=== PATIENT | male | born 1950 | race Caucasian/White ===

== ENCOUNTER 2018-04-28 15:32 | Emergency (ER) | payer MEDICARE ==
[2018-04-28] MEDS ORDERED: FAMOTIDINE 20 MG TAB PO STA (17:32)
--- NOTE | 2018-04-28 17:38 | ED ---
General Adult HPI - General Chief complaint: Allergic Reaction Stated complaint: Allergic reaction to medication Time Seen by Provider: 04/28/18 17:23 Source: patient, RN notes reviewed, old records reviewed Mode of arrival: ambulatory Limitations: no limitations - History of Present Illness Initial comments: 67 -year-old male presents for evaluation of lip swelling. Patient's symptoms began yesterday evening, there were sent by a.m. this morning. Patient states symptoms had been improving, and was seen by his primary care physician, there was concern for angioedema as patient is on lisinopril. Patient states she's had these symptoms 3-4 times over the past 1-2 years. Resolved with Benadryl. No other treatment. He took his lisinopril medication this morning. Patient denies dyspnea, denies tongue swelling. Denies any other symptoms. Patient had eaten a candidate bar in the waiting room. - Related Data Home Medications Medication Instructions Recorded Confirmed Dextroamphetamine/Amphetamine 25 mg PO BID 11/23/15 11/23/15 [Adderall Xr] Lisinopril [Prinivil] 10 mg PO DAILY 11/23/15 11/23/15 Venlafaxine HCl ER [Effexor Xr] 150 mg PO DAILY 11/23/15 11/25/15 Previous Rx's Medication Instructions Recorded Famotidine [Pepcid] 20 mg PO DAILY #7 tablet 04/28/18 diphenhydrAMINE [Benadryl] 25 mg PO TID PRN #21 capsule 04/28/18 methylPREDNISolone Dose Pack 4 mg PO DIRECTED #21 package 04/28/18 [Medrol Dose Pack] Allergies Allergy/AdvReac Type Severity Reaction Status Date / Time lisinopril Allergy Swelling Verified 04/28/18 17:25 Review of Systems ROS Statement: Those systems with pertinent positive or pertinent negative responses have been documented in the HPI. ROS Other: All systems not noted in ROS Statement are negative. Past Medical History Past Medical History: Hypertension, Pneumonia History of Any Multi-Drug Resistant Organisms: None Reported Additional Past Surgical History / Comment(s): vasectomy with 2 reversals Past Anesthesia/Blood Transfusion Reactions: No Reported Reaction Smoking Status: Former smoker Past Alcohol Use History: Occasional Past Drug Use History: None Reported - Past Family History Mother Family Medical History: Cancer Additional Family Medical History / Comment(s): lung General Exam Limitations: no limitations General appearance: alert, in no apparent distress Head exam: Present: atraumatic, normocephalic Eye exam: Present: normal appearance ENT exam: Present: other (Bilateral upper and lower lip swelling, no tongue swelling, no uvular swelling, no oropharyngeal swelling, no stridor) Neck exam: Present: normal inspection. Absent: tenderness, meningismus Respiratory exam: Present: normal lung sounds bilaterally. Absent: respiratory distress, stridor Cardiovascular Exam: Present: regular rate, normal rhythm GI/Abdominal exam: Present: soft. Absent: distended, tenderness Extremities exam: Present: normal inspection, normal capillary refill. Absent: pedal edema Neurological exam: Present: alert, oriented X3, CN II-XII intact. Absent: motor sensory deficit Psychiatric exam: Present: normal affect, normal mood Skin exam: Present: warm, dry, intact. Absent: cyanosis, diaphoretic Course Vital Signs 04/28/18 04/28/18 16:30 17:25 Temperature 97.7 F Pulse Rate 90 Respiratory 18 18 Rate Blood Pressure 148/83 O2 Sat by Pulse 98 Oximetry - Reevaluation(s) Reevaluation #1: 04/28/18 1830 Patient is observed in the emergency department for approximately 3 and half hours, no worsening of his symptoms, no tongue or uvular swelling, no stridor. Medical Decision Making - Medical Decision Making Patient with angioedema, patient reports symptoms are improving. He did take lisinopril this morning her symptoms have improved since he took this medication. He had taken Benadryl several hours prior to arrival, given 125 mg Solu-Medrol by his primary care physician prior to arrival. He is given Pepcid in the emergency department. He was observed, lisinopril was added to his ALLERGY list. He will discontinue this medication. He will be discharged home on steroids, Benadryl, Pepcid. Disposition Clinical Impression: Angioedema, Allergy to lisinopril Disposition: HOME SELF-CARE Condition: Good Instructions (If sedation given, give patient instructions): Angioedema (ED) Additional Instructions: Please discontinue lisinopril, follow-up with primary care physician regarding no antihypertensive medication. Prescriptions: diphenhydrAMINE [Benadryl] 25 mg PO TID PRN #21 capsule PRN Reason: Allergic Reaction Famotidine [Pepcid] 20 mg PO DAILY #7 tablet methylPREDNISolone Dose Pack [Medrol Dose Pack] 4 mg PO DIRECTED #21 package Is patient prescribed a controlled substance at d/c from ED?: No Referrals: Carlos Schmitz MD [Primary Care Provider] - 1-2 days Time of Disposition: 18:20
[2018-04-28 18:48] VITALS: BP 127/94; PULSE 88; RESP 16; TEMP 97.5
== END 2018-04-28 18:48 | disposition home or self-care (01) ==
LOC: EC 15:32
DX: T78.3XXA Angioneurotic edema, initial encounter (principal); I10 Essential (primary) hypertension; Z79.899 Other long term (current) drug therapy; Z88.8 Allergy status to other drugs, medicaments and biological substances; Z87.891 Personal history of nicotine dependence
CPT/HCPCS: 99283

== ENCOUNTER → 2022-02-20 | Outpatient (CLI) | payer MEDICARE ==
--- NOTE | 2022-02-20 10:27 | CTL ---
EXAMINATION TYPE: CT Low Dose Lung DATE OF EXAM ORDERED: 02/20/2022 HISTORY: Long-term tobacco use. Lung cancer screening CT DLP: 144.[address] CTDI: 3.70 mGy Automated exposure control for dose reduction was used. SCREENING VISIT: Baseline COMPARISON: Prior diagnostic chest CT is 2011 through 2009. TECHNIQUE: Low dose computed tomography scan was performed through the chest at 1 mm thick sections a nd reconstructed images in multiple planes at 1 mm and [address] DIAGNOSTIC QUALITY: Satisfactory FINDINGS: LUNG NODULES: Present, detailed below: Stable for a 5 mm right lower lobe nodule axial image [address] No greater than 5 mm pulmonary nodules. LUNGS: COPD: Severity: None Fibrosis: Severity: None Lymph nodes: No greater than 1 cm Other findings: Prominent main pulmonary artery at 3.2 cm axial image 27 consistent with underlying p ulmonary artery hypertension. RIGHT PLEURAL SPACE: Effusion: None Calcification: None Thickening: None Pneumothorax: None LEFT PLEURAL SPACE: Effusion: None Calcification: None Thickening: None Pneumothorax: None HEART: Heart Size: Normal Coronary Calcification: Mild in the LAD. Pericardial Effusion: None OTHER FINDINGS: Upper abdomen: None Bony thorax: S shaped scoliosis is redemonstrated. Mild multilevel spurring in the spine. Supraclavicular region: None Other: None IMPRESSION: No significant new or enlarging greater than [address] LUNG RAD AND CT CHEST RECOMMENDATION: Lung-Rad 2 Benign Appearance or Behavior: Continue annual sc reening with LDCT in 12 months. S Modifier (other clinically significant findings): None
== END | disposition home or self-care (01) ==
LOC: RADCTMAIN 09:20
PROVIDERS: ATTEND Family Medicine
DX: Z12.2 Encounter for screening for malignant neoplasm of respiratory organs (principal); R91.8 Other nonspecific abnormal finding of lung field; Z87.891 Personal history of nicotine dependence
CPT/HCPCS: 71271

== ENCOUNTER → 2023-08-28 | Outpatient (CLI) | payer MEDICARE ==
--- NOTE | 2023-08-29 01:20 | CTL ---
EXAMINATION TYPE: CT Low Dose Lung DATE OF EXAM ORDERED: 08/28/2023 HISTORY: Current smoker, 55 pack-year history. Lung cancer screening CT DLP: 126.[address] CTDI: 3.2 mGy Automated exposure control for dose reduction was used. SCREENING VISIT: Second screen exam after baseline COMPARISON: CT Low Dose Lung 02/20/2022 TECHNIQUE: Low dose computed tomography scan was performed through the chest at 1 mm thick sections a nd reconstructed images in multiple planes at 1 mm and [address] DIAGNOSTIC QUALITY: Satisfactory FINDINGS: Nodules: Stable 5 mm right lower lobe pulmonary nodule (series 6, image 39). Stable left lower lobe 2 mm pulmo nary nodule (series 4, image 50). No new or enlarging pulmonary nodules. LUNGS: COPD: Severity: None Fibrosis: Severity: None Lymph nodes: None Other findings: None RIGHT PLEURAL SPACE: Effusion: None Calcification: None Thickening: None Pneumothorax: None LEFT PLEURAL SPACE: Effusion: None Calcification: None Thickening: None Pneumothorax: None HEART: Heart Size: Normal Coronary Calcification: Small Pericardial Effusion: None OTHER FINDINGS: Upper abdomen: Small hiatal hernia. Bony thorax: No acute thoracic process. Stable anterior wedge compression deformity of the L1 vertebr al body. Supraclavicular region: None Other: Aneurysmal dilatation aortic root measuring up to 4.1 cm. Previously measured 4.0 cm. Aneurysm al dilatation of the descending thoracic aorta measuring up to 4.5 cm. Previously measured 4.3 cm. Ec daryl of the descending thoracic aorta measuring up to 3.8 cm. Previously measured 3.7 cm. IMPRESSION: 1. Stable couple pulmonary nodules from prior exam. No new or enlarging pulmonary nodules. 2. Marginal increase in size of aneurysmal dilatation of the ascending thoracic aorta measuring up to 4.5 cm, previously 4.3 cm. There is similar aneurysmal dilatation of the aortic root measuring up to 4.[address] LUNG RAD AND CT CHEST RECOMMENDATION: Lung-Rad 2 Benign Appearance or Behavior: Continue annual sc reening with LDCT in 12 months. S Modifier (other clinically significant findings): S
== END | disposition home or self-care (01) ==
LOC: RADCTMAIN 07:45
PROVIDERS: ATTEND Family Medicine
DX: Z12.2 Encounter for screening for malignant neoplasm of respiratory organs (principal); J44.9 Chronic obstructive pulmonary disease, unspecified; R91.8 Other nonspecific abnormal finding of lung field; I71.21 Aneurysm of the ascending aorta, without rupture; F17.210 Nicotine dependence, cigarettes, uncomplicated
CPT/HCPCS: 71271

== ENCOUNTER → 2024-01-14 | Outpatient (CLI) | payer MEDICARE ==
--- NOTE | 2024-01-15 11:31 | CA ---
Transthoracic Echo Report Name: Isaac Castillo Age: 73 Gender: M : 1950 Exam Date: 01/14/2024 13:16 Exam Location: [place] [facility] Ht (in): 72 Wt (lb): 193 Ordering Physician: Geoff Harp MD Attending/Referring Phys: Geoff Harp MD General Education Professor Mirlande Dominguez, [facility] Procedure CPT: Indications: I71.20 THORACIC AORTIC ANEURYSM, WITHOUT RUPTURE, Cardiac Hx: Fam Hx of AO anurysm Technical Quality: Good Contrast 1: Total Dose (mL): Contrast 2: Total Dose (mL): MEASUREMENTS (Male / Female) Normal Values 2D ECHO LV Diastolic Diameter PLAX 3.2 cm 4.2 - 5.9 / 3.9 - 5.3 cm LV Systolic Diameter PLAX 2.5 cm IVS Diastolic Thickness 2.1 cm 0.6 - 1.0 / 0.6 - 0.9 cm LVPW Diastolic Thickness 1.5 cm 0.6 - 1.0 / 0.6 - 0.9 cm LV Relative Wall Thickness 1.1 RV Internal Dim ED PLAX 3.7 cm LA Systolic Diameter LX 3.7 cm 3.0 - 4.0 / 2.7 - 3.8 cm LV Diastolic Volume MOD 4C 119.6 cm??? LV Systolic Volume MOD 4C 51.9 cm??? LV Ejection Fraction MOD 4C 56.6 % LV Cardiac Index MOD 4C 2169.8 cm???/min???m??? LV Diastolic Length 4C 9.0 cm LV Systolic Length 4C 7.3 cm LV Diastolic Volume MOD 2C 61.6 cm??? LV Systolic Volume MOD 2C 26.4 cm??? LV Ejection Fraction MOD 2C 57.1 % LV Cardiac Index MOD 2C 1128.8 cm???/min???m??? LV Diastolic Length 2C 8.7 cm LV Systolic Length 2C 7.4 cm M-MODE Aortic Root Diameter MM 4.2 cm LA Systolic Diameter MM 1.9 cm LA Ao Ratio MM 0.4 DOPPLER AV Peak Velocity 166.4 cm/s AV Peak Gradient 11.1 mmHg Mitral E Point Velocity 71.8 cm/s Mitral A Point Velocity 85.8 cm/s Mitral E to A Ratio 0.8 MV Deceleration Time 266.0 ms MV E' Velocity 4.7 cm/s Mitral E to MV E' Ratio 15.1 TR Peak Velocity 220.7 cm/s TR Peak Gradient 19.5 mmHg Right Ventricular Systolic Press 29.7 mmHg FINDINGS Left Ventricle Left ventricular ejection fraction is estimated at 55-60 %. . Normal left ventricular wall motion. Right Ventricle Mild right ventricular dilatation. Right ventricular systolic pressure within normal limits. Right Atrium Normal right atrial size. No spontaneous contrast in the right atrium. Left Atrium Normal left atrial size. No left atrial thrombus or mass present. Mitral Valve Structurally normal mitral valve. Mitral annular calcification. Trace mitral regurgitation. Aortic Valve Trileaflet aortic valve. Mild aortic regurgitation. Aortic valve sclerosis. Tricuspid Valve Structurally normal tricuspid valve. Mild tricuspid regurgitation. Pulmonic Valve Structurally normal pulmonic valve. Trace pulmonic regurgitation. Pericardium No pericardial or pleural effusion. Aorta Moderate aortic dilatation at the level of the sinuses of valsalva 42 mm. Ascending aortic anurysm CONCLUSIONS Normal LV systolic function Ascending aortic aneurysm measuring 4.2 cm at the level of sinuses of Valsalva Previewed by: Dr. Sajan Kohler MD (Electronically Signed) Final Date: 15 January 2024 11:30
== END | disposition home or self-care (01) ==
LOC: RADECHMAIN 13:09
PROVIDERS: ATTEND Surgery
DX: I71.21 Aneurysm of the ascending aorta, without rupture (principal)
CPT/HCPCS: 93306